=== PATIENT | female | born 1975 | race Caucasian/White ===

== ENCOUNTER 2024-10-22 08:31 | Day surgery (SDC) | payer OTHER ==
[~2024-10-22 08:31] MED LIST: Lactated Ringers 1,000 ML IV ONE; Sensorcaine 0.25% 10 ML ONE
[2024-10-22] MEDS ORDERED: NEURONTIN ONE (08:32)
[2024-10-22] MEDS ORDERED: Pepcid 20 MG VIAL IV ONE (08:32)
[2024-10-22] MEDS ORDERED: celeBREX 100 MG ONE (08:32)
[2024-10-22] MEDS ORDERED: Decadron 4 MG ONE (08:32)
[2024-10-22] MEDS ORDERED: CEFOXITIN 2 GM/100 ML NACL IVPB 2 GM/100 ML IVPB IV ONE (08:32)
[2024-10-22] MEDS ORDERED: Transderm Scop 1.5MG Patch ONE (08:32)
[2024-10-22] MEDS ORDERED: TYLENOL EXTRA STRENGTH 500 MG ONE (08:32)
[2024-10-22] MEDS ORDERED: Lactated Ringers 1,000 ML IV ONE (08:33)
[2024-10-22] MEDS: CEFOXITIN 2 GM/100 ML NACL IVPB 2 GM/100 ML IVPB IV ONE (08:34)
[2024-10-22] MEDS: Pepcid 20 MG VIAL IV ONE (08:35)
[2024-10-22] MEDS: celeBREX 100 MG PO ONE (08:35)
[2024-10-22] MEDS: Decadron 4 MG PO ONE (08:35)
[2024-10-22] MEDS: Transderm Scop 1.5MG Patch TOP ONE (08:35)
[2024-10-22] MEDS: NEURONTIN PO ONE (08:35)
[2024-10-22] MEDS: TYLENOL EXTRA STRENGTH 500 MG PO ONE (08:35)
[2024-10-22] MEDS: Lactated Ringers 1,000 ML IV SCH (08:35)
[2024-10-22 08:48] VITALS: RESP 18
--- NOTE | 2024-10-22 09:31 | HP ---
HISTORY OF PRESENT ILLNESS: The patient has had bouts of diarrhea and nausea, pain in abdomen, nausea a lot, some cramping going on for a couple of months. Dr. Salguero did a colonoscopy in 08/26. She had an ultrasound, showed cholelithiasis, high ejection fraction 23%. PAST MEDICAL HISTORY: Hypertension, reflux, irritable bowel syndrome, depression, anxiety. She said she had some liver enzymes, been normal bilirubin in the past. She declined an MRCP. HOME MEDICATIONS: Magnesium, trazodone, omeprazole, Cymbalta, Bystolic, vitamin E, Tirzepatide, Zanaflex, progesterone, ondansetron, Carafate, and dicyclomine. ALLERGIES: Benadryl and codeine. PAST SURGICAL HISTORY: She had sinus surgery, had a tubal in the past, laparoscopy in the past, had carpal tunnel release in the past, had foot surgery, right hip arthroplasty in the past. SOCIAL HISTORY: No smoking or alcohol abuse. FAMILY HISTORY: Hypertension. REVIEW OF SYSTEMS: Twelve systems were reviewed. Pertinent for problems as noted above. She reports history of taking opioids in the past for fibromyalgia. PHYSICAL EXAMINATION: GENERAL: Height 5 feet 2 inches. BMI 27.25. No acute distress. HEENT: Sclerae anicteric. NECK: No JVD. CARDIOVASCULAR: Regular rate and rhythm. RESPIRATORY: Equal excursion, nonlabored breathing. ABDOMEN: Soft. Some mild mid abdominal deep tenderness. No peritoneal signs. SKIN: Dry. EXTREMITIES: No cyanosis or edema. NEUROLOGIC: Alert and oriented. Moving all extremities symmetrically. PSYCHIATRIC: Appropriate mood and affect. IMPRESSION: Acute exacerbation of chronic cholecystitis. Recommend cholecystectomy. Shown gallbladder pamphlet. Explained procedure in detail including bleeding, infection; risk of trocar injury or hernia; risk of bowel, bladder or blood vessel injury; risk of bile leak or bile duct injury, retained stone or sludge possibly requiring ERCP or open procedure; risk of anesthesia, DVT, PE, pneumonia; risk of aches, pains, bloating, constipation, and/or loose stools possibly chronic in nature; possibly no improvement of preop symptoms possibly requiring further workup or studies or endoscopy or other studies or referrals. We will schedule outpatient under general anesthetic, laparoscopic cholecystectomy, possible open Otherwise, continue medication for anxiety, IBS, reflux, and hypertension.
[2024-10-22 09:40] LABS: Calcium 9.2 mg/dL (8.4-10.2); Creatinine 1 0.49 mg/dL (0.52-1.04); Potassium 4.4 mmol/L (3.5-5.1)
[2024-10-22] MEDS ORDERED: ROCURONIUM BROMIDE IV ONE (10:35)
[2024-10-22] MEDS ORDERED: dexAMETHasone sodium phosphate ONE (10:35)
[2024-10-22] MEDS ORDERED: Zofran 4 MG/2 ML VIAL ONE (10:35)
[2024-10-22] MEDS ORDERED: Xylocaine-Mpf 2% 5 Ml Vial ONE (10:35)
[2024-10-22] MEDS ORDERED: Quelicin Fliptop 200 MG/10 ML ONE (10:35)
[2024-10-22] MEDS ORDERED: propofoL IV ONE (10:36)
[2024-10-22] MEDS ORDERED: SUBLIMAZE 100 MCG/2 ML ONE ×2 (10:36→12:17)
[2024-10-22] MEDS ORDERED: TORAdol 30 mg Injection ONE (11:11)
[2024-10-22] MEDS ORDERED: BRIDION 200MG/2ML IV ONE (11:11)
[2024-10-22] MEDS ORDERED: DILAUDID 2 MG INJECTION ONE (11:32)
[2024-10-22] MEDS ORDERED: Hydromorphone 1 mg/ml Injection ONE ×2 (12:17→12:50)
[2024-10-22] MEDS: NORCO 7.5/325 MG TAB PO ONE (13:46)
[2024-10-22 13:50] VITALS: TEMP 98
[2024-10-22 14:09] VITALS: BP 142/52; PULSE 72; O2SAT 97
--- NOTE | 2024-10-23 12:27 | OP ---
SURGERY DATE/TIME: 10/22/2024 PREOPERATIVE DIAGNOSIS: Acute exacerbation of chronic cholecystitis and symptomatic cholelithiasis. POSTOPERATIVE DIAGNOSIS: Acute exacerbation of chronic cholecystitis and symptomatic cholelithiasis. PROCEDURE: Laparoscopic cholecystectomy. SURGEON: Vern Diaz MD ANESTHESIA: General. ESTIMATED BLOOD LOSS: Minimal. INDICATIONS: As noted above. The risks and benefits were explained in detail, not limited to. Consent obtained. DESCRIPTION OF PROCEDURE AND FINDINGS: The patient was taken to the operating room. General anesthesia was induced. Abdomen was prepped and draped in the usual sterile fashion. After official time-out, no disagreement in planned procedure. A transverse incision was made in the supraumbilical area. Fascia grasped and pulled upward. Veress needle inserted. Tested with saline. Pneumoperitoneum accomplished, opening pressure of 0 to 15. An 11 mm bladeless port and camera inserted without difficulty followed by two 5 mm right upper quadrant ports, 5 mm epigastric port. Gallbladder had some chronic inflammation, dissected posterolateral to anterior fashion slowly and carefully. The critical view was obtained dissecting the cystic duct infundibular junction and directly along the gallbladder wall. Just prior to releasing it from its final attachments, the gallbladder was quite vascular requiring clipping at additional oozing site cystic artery vein. felt the liver was a little bit raw where the gallbladder dissected from the liver bed. Just prior to releasing the final attachments to the liver, the liver bed was pinpoint cautery little ooze. The gallbladder was released from the final attachments. It should be noted one of the graspers a little tiny pinhole and the gallbladder was seeping a small amount of bile. There was no evidence of any stone spillage. The gallbladder was suctioned clear. Gallbladder was then continued dissecting and then finally released from its anterior edge of the liver. Clips were noted to be in place at the cystic duct/cystic artery stumps. No signs of any bile leakage from the cystic duct stump itself or the gallbladder bed. The gallbladder and stones were placed in the sac and packed up and out the supraumbilical port site and passed off. This port was closed with the puncture closure device with #1 Vicryl under direct visualization of the camera. The port was temporarily placed. Copious irrigation accomplished. irrigated. The subhepatic space was irrigated clear. Clips were noted to be in place in the cystic duct/cystic artery stumps. Some pinpoint cautery near the anterior liver edge was accomplished. As the patient had kind of been raw throughout the case, almost like an antiplatelet effect, it was felt that it would be beneficial to leave Surgicel. A couple of pieces of Surgicel over the was bunched up. The second Surgicel would be spread along the gallbladder bed. Copious irrigation was accomplished lateral liver, irrigated clear. With the Surgicel, seemed to have good hemostasis at this point. It was felt this would just absorb over time. At this point, the pneumoperitoneum was decompressed. Again, fascia defects were closed with #1 Vicryl. Wounds irrigated out. Skin incision closed with 4-0 Vicryl. Then, 0.25% Marcaine local injected along each skin incision and fascial defect. The skin incision was closed with 4-0 Vicryl. Even her skin was oozy like an antiplatelet effect. Anesthesia was told not to give her Toradol at this point. She had been given a local. Appeared to have adequate hemostasis. Steri-Strips and sterile dressing applied. Findings were discussed with her family out in the waiting area. She was instructed to avoid aspirin or nonsteroidals over the next few days or 1 week. Expect some bruising.
== END 2024-10-22 14:32 | disposition home or self-care (01) ==
LOC: SDC 08:31
PROVIDERS: ATTEND Surgery
DX: K80.10 Calculus of gallbladder with chronic cholecystitis without obstruction (principal); I10 Essential (primary) hypertension
CPT/HCPCS: 36415; 80048; 93005; J0330; J0694; J1100; J1171; J1885; J2405; J2704; J3010; L0625; A9270-GY

== ENCOUNTER 2025-07-10 12:39 | Day surgery (SDC) | payer OTHER ==
[2025-07-10] MEDS ORDERED: LIDOCAINE HCL 2% 100 MG/5 ML IJ ONE (12:40)
[2025-07-10 14:12] LABS: HCG URINE TEST NEGATIVE (NEGATIVE)
[2025-07-10] MEDS ORDERED: propofoL IV ONE (15:03)
[2025-07-10] MEDS ORDERED: Versed 2 MG/2 ML Injection ONE ×2 (15:06)
[2025-07-10] MEDS ORDERED: Lactated Ringers 1,000 ML IV ONE (15:29)
--- NOTE | 2025-07-10 16:47 | XRAY ---
Indication: Right C2-C4 MBB. Intraoperative fluoroscopy provided for 12 seconds. 2 digital spot image submitted for interpretation demonstrates posterior needle tips projecting over expected right C2-C4 nerve roots. Correlate with intraoperative findings/report.
--- NOTE | 2025-07-10 16:49 | XRAY ---
12 seconds of fluoroscopy was used in surgery for a right C2-C4 MBB.
== END 2025-07-10 15:41 | disposition home or self-care (01) ==
LOC: SDC-PAIN 12:39
PROVIDERS: ATTEND Psychiatry & Neurology Pain Medicine
DX: M47.812 Spondylosis without myelopathy or radiculopathy, cervical region (principal)

== ENCOUNTER 2025-08-01 13:06 | Day surgery (SDC) | payer OTHER ==
[2025-08-01] MEDS ORDERED: BUPIVACAINE 0.5% VIAL IJ ONE (13:07)
[2025-08-01 14:10] LABS: HCG URINE TEST NEGATIVE (NEGATIVE)
[2025-08-01] MEDS ORDERED: propofoL IV ONE (14:58)
[2025-08-01] MEDS ORDERED: Lactated Ringers 1,000 ML IV ONE (15:19)
--- NOTE | 2025-08-01 17:08 | XRAY ---
Indication: Right C2-C4 MBB. Intraoperative fluoroscopy provided for 8 seconds. 2 lateral digital spot images submitted for interpretation demonstrates posterior needle tips projecting over presumed right C2-C4 nerve roots. Correlate with intraoperative findings/report.
--- NOTE | 2025-08-02 09:01 | XRAY ---
8 seconds of fluoroscopy were used in surgery for a right C2-C4 MBB.
== END 2025-08-01 15:35 | disposition home or self-care (01) ==
LOC: SDC-PAIN 13:06
PROVIDERS: ATTEND Psychiatry & Neurology Pain Medicine
DX: M47.812 Spondylosis without myelopathy or radiculopathy, cervical region (principal)